=== PATIENT | male | born 1935 | race Caucasian/White ===

== ENCOUNTER → 2019-02-04 | Outpatient (CLI) | payer OTHER ==
[~2019-02-04] MED LIST: ATENOLOL25 MG PO; COUMADIN3 M1 PO; Coumadin10 MG PO; Lovenox80 MG/0.8 SC; PROZAC20 MG PO; VENTOLIN 02.5 MG/3 M INH; WARFARIN SOD5 MG PO
[2019-02-04 08:58] LABS: BASO # 0.1 10*3/uL (0.0-0.1); BASO % 1.3 % (0.0-1.0); EOS # 0.4 10*3/uL (0.0-0.4); EOS % 6.3 % (1.0-4.0); HEMOGLOBIN 13.1 g/dl (14.0-18.0); LYMPH # 1.8 10*3/uL (1.3-4.4); LYMPH % 30.2 % (27.0-41.0); MEAN CELL VOLUME 98.6 fl (80.0-94.0); MEAN CORPUSCULAR HGB 31.5 pg (27.0-31.0); MEAN PLATELET VOLUME 10.4 fl (9.6-12.3); MONO # 0.6 10*3/uL (0.1-1.0); MONO % 9.5 % (3.0-9.0); NEUT # 3.2 10*3/uL (2.3-7.9); NEUT % 52.4 % (47.0-73.0); PLATELET COUNT AUTOMATED 265 10*3/uL (130-400); RED BLOOD COUNT 4.16 10*6/uL (4.50-5.90); RED CELL DISTRI WIDTH 15.8 % (0-14.5)
[2019-02-04 09:20] LABS: ALBUMIN 3.1 gm/dl (3.1-4.5); BUN 18 mg/dl (7-24); CHLORIDE 105 mmol/L (98-107); CREATININE 1.02 mg/dL (0.70-1.30); PHOSPHOROUS 2.6 mg/dL (2.5-4.9); SGOT/AST 20 IU/L (3-35); SGPT/ALT 17 U/L (12-78); SODIUM 138 mmol/L (136-145)
[2019-02-04 09:21] LABS: ALKALINE PHOSPHATASE 84 U/L (45-117)
[2019-02-04 09:28] LABS: FREE T4 1.01 ng/dl (0.76-1.46)
[2019-02-04 09:42] LABS: PREALBUMIN 26 mg/dl (20-40)
[2019-02-04 10:58] LABS: VITAMIN D, 25-HYDROXY 42.1 ng/mL (30-100)
== END | disposition home or self-care (01) ==
LOC: RAD 02:34 → LAB 02:34 → RAD 09:00
PROVIDERS: Internal Medicine
DX: I10 Essential (primary) hypertension (principal); R13.10 Dysphagia, unspecified

== ENCOUNTER 2019-02-16 12:08 | Inpatient (IN) | payer OTHER ==
[~2019-02-16] VITALS: Ht 185.4 cm; Wt 77.7 kg
--- NOTE | ~2019-02-16 | PR ---
[place], [place] PROGRESS NOTE NAME: CHASTITY MURCIA UNIT #: [id number] ROOM: 415 DOCTOR: IVA REDDING MD BIRTHDATE: [birth year] DOS: 02/18/2019 HISTORY OF PRESENT ILLNESS: This gentleman is an 83-year-old, who has presented with previous neurogenic dysphagia. Subsequent regain of swallow. No choking, no coughing upon eating. I have been asked for assessment of this patient regarding PEG tube removal. The patient initially has been on anticoagulant. We had to wait until it is safe timing. Eventually, this was organized for today. PAST MEDICAL HISTORY: CVA, depression, hypertension, and rheumatoid arthritis. PAST SURGICAL HISTORY: Feeding tube. ALLERGIES: ASPIRIN. SOCIAL HISTORY: Nonsmoker, nonalcohol consumer. REVIEW OF SYSTEMS: In general, slightly confused and early dementia could be felt. PHYSICAL EXAMINATION: HEENT: Benign. NECK: Supple, no thyromegaly, no cervical lymphadenopathy. CHEST: Symmetric anatomy, equal expansion. No wheeze, no rhonchi. HEART: Normal sinus rhythm, no gallop, no murmur. ABDOMEN: Soft. No hepato-organomegaly. Bowel sounds present. No pulsatile mass. EXTREMITIES: No cyanosis, no pedal edema. NEUROLOGIC: Alert and oriented to time, place, person. At this stage, anterior abdominal wall was approached. PEG tube site was reassessed, aseptically the area was prepped, the PEG tube was removed percutaneously and site was saturated with Neosporin, pressured dressing by physician was undertaken and we have asked the patient to only have ice popsicles tonight and from tomorrow we can start feeding him soft diet. On the other hand, we are going to keep him on D5 normal saline at 100 mL till morning when he gets something to eat and we will discontinue thereafter. As far as the dressing is concerned, we are going to keep the dressing on for 72 hours and at home, he can change it with gauze and Neosporin ointment and dressing. Thank you very much indeed. [place], [place] PROGRESS NOTE NAME: CHASTITY MURCIA UNIT #: [id number] ROOM: 415 DOCTOR: IVA REDDING MD BIRTHDATE: [birth year] IVA REDDING MD CM:RUMA [id number] IVA REDDING MD 02/19/19 0531 interface
--- NOTE | ~2019-02-16 | CON ---
[place], [place] REPORT OF CONSULTATION NAME: CHASTITY MURCIA UNIT #: [id number] ROOM: 415 DOCTOR: IVA REDDING MD BIRTHDATE: [birth year] DOS: 02/16/2019 HISTORY OF PRESENT ILLNESS: This is an 83-year-old patient who presented with chief complaint of a toxic level of Coumadin and INR greater than 8. This has been corrected. The patient has history of nausea, vomiting, prolonged INR, INR has been corrected partially. I have been asked for removal of PEG tube. Patient has Warfarin toxicity. FAMILY HISTORY: Noncontributory. Detailed history cannot be obtained from the patient, he cannot provide meaningful data to me that otherwise available through the Family Medicine records. PAST SURGICAL HISTORY: Feeding tube placement. SOCIAL HISTORY: Nonsmoker, nonalcohol consumer. ALLERGIES: ASPIRIN. REVIEW OF SYSTEMS: HEENT: Denies double vision, blurred vision. RESPIRATORY: Denies shortness of breath. CARDIOVASCULAR: Denies chest pain. DIGESTIVE SYSTEM: Status post previous PEG tube. PHYSICAL EXAMINATION: VITAL SIGNS: Stable. HEENT: Within normal limit. NECK: Supple. No thyromegaly, no cervical lymphadenopathy. CHEST: Symmetric anatomy, equal expansion. No wheeze, no rhonchi. HEART: Normal sinus rhythm. No gallop, murmur. ABDOMEN: PEG tube in place. Bowel sounds present. NEUROLOGIC: Alert and oriented to time, place, and person. EXTREMITIES: Benign. IMPRESSION: Regain of swallowing, presence of PEG tube, constipation, depression, and Coumadin toxicity. We will await Coumadin toxicity to resolve. We will remove PEG tube on Saturday. [place], [place] REPORT OF CONSULTATION NAME: CHASTITY MURCIA UNIT #: [id number] ROOM: 415 DOCTOR: IVA REDDING MD BIRTHDATE: [birth year] IVA REDDING MD CM:CONSTR:REPORT OF CONSULTATION 2248 03/11/19 0729 interface
--- NOTE | ~2019-02-16 | EKG ---
[place], [place] ELECTROCARDIOGRAM REPORT NAME: CHASTITY MURCIA UNIT #: [id number] ROOM: 415 DOCTOR: ALBA DRAFT REPORT BIRTHDATE: [birth year] [facility] Test Date: 2019-02-18 Test Time: 06:59:33 Pat Name: CHASTITY MURCIA Department: Room: 415 1 Gender: M Connie Scratcher: Tamika Lemus : 1935 Requested By: HERNAN HINDS Order Number: [id number] Reading MD: Yo Guan MD Measurements Intervals [place] Rate: 84 P: 57 RI: 171 QRS: 0 QRSD: 94 T: 35 QT: 397 QTc: 470 Interpretive Statements Sinus rhythm Abnormal R-wave progression, early transition Baseline wander in lead(s) V2 Electronically Signed On 02-18-2019 16:07:50 PDT by Yo Guan MD CM:EKGRPT:ELECTROCARDIOGRAM REPORT [id number] HERNAN HINDS EPIPHANY DRAFT REPORT HERNAN HINDS
--- NOTE | ~2019-02-16 | WRIGHTHP ---
[place], [place] PATIENT HISTORY AND PHYSICAL EXAM NAME: CHASTITY MURCIA UNIT #: [id number] ROOM: 415 DOCTOR: BLANQUITA LILLY MD BIRTHDATE: [birth year] DOS: CHIEF COMPLAINT: Coumadin toxicity, INR greater than 8. HISTORY OF PRESENT ILLNESS: The patient was here in the office for PEG tube removal, but INR was done and it was found to be above 8.2. The patient was on tube feedings and he was getting vitamin K through the tube feedings. He has stopped taking tube feeds and is feeding himself orally and that might be the reason his INR is high. The patient is on Coumadin for 20 years for old CVA. He saw a neurologist and neurologist recommended contrast echo and also recommended 30-day event monitor. We will consult Cardiology for 30-day event monitor and also for a 2D echo. We will also consult Dr. Calderón for PEG tube removal. PAST MEDICAL HISTORY: Significant for: 1. 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 He walks on his own. 2. Rheumatic fever at age of 16. 3. Bowel obstruction and was admitted to [place]. There he had seizure from aspiration pneumonia. Subsequently, he was transferred to [facility] and PEG tube was placed at [facility]. He is now able to eat solid food. MEDICATIONS: Atenolol 25 mg daily, fluoxetine 20 mg daily, albuterol 2.5 mg/3 mL, it is 0.083% nebulization solution 3 times a day as needed for shortness of breath, MiraLax 1 packet mixed with 8 ounces of fluid once daily, Coumadin 5 mg on Saturday, Saturday, Saturday and 10 mg on Saturday, Saturday, Saturday and . PAST SURGICAL HISTORY: Feeding tube and flush tube place in November 2018. FAMILY HISTORY: Noncontributory. 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 His one sister is alive, rest all the siblings have . One brother of cancer and another brother also, of cancer, one sister of heart aneurysm and nonsmoker, nonalcoholic, no illicit drug use. ALLERGIES: ASPIRIN causes anaphylaxis. REVIEW OF SYSTEMS: Basically unremarkable. He has no weight change, no weakness, no earache, no hearing loss, no double vision, no blurred vision, no discharge. He has eye discharge. No shortness of breath. No wheezing. No sputum production. No chest pain. No PND, orthopnea. No heartburn. No constipation. No diarrhea No easy bruising. No frequent or painful urination. No muscle weakness. No dry skin. No rash. No difficulty speaking. No memory loss. No numbness. He is not depressed. No suicidal thoughts. PHYSICAL EXAMINATION: VITAL SIGNS: Temperature 98.1, heart rate 80, blood pressure 122/74 and [place], [place] PATIENT HISTORY AND PHYSICAL EXAM NAME: CHASTITY MURCIA UNIT #: [id number] ROOM: [facility] DOCTOR: BLANQUITA LILLY MD BIRTHDATE: [birth year] respiratory rate is 16 and oxygen saturation 97%. HEAD: Normocephalic, atraumatic. EYES: Pupils equal, round, react to light. Extraocular movements intact. EAR, NOSE AND THROAT: No discharge noted. NECK: No JVD. No lymphadenopathy. No thyromegaly. CHEST: Clinically clear to auscultation bilaterally. HEART: S1, S2, regular rate and rhythm. No murmur, gallop or rub. ABDOMEN: Soft, nontender. The is a PEG tube is in place. EXTREMITIES: No edema noted. NEUROLOGIC: Muscle strength is 4/5 in the right upper extremity and 5/5 in all other extremities. ASSESSMENT AND PLAN: At this time is: 1. Coumadin toxicity. We will start the patient on vitamin K. We will give 5 mg today and check PT/INR in the morning. Pharmacist to dose Coumadin. 2. History of stroke in the past. We will get contrast, 2D echo with bubble study. We will consult Cardiology if required. The patient also needs event monitor. 3. Depression. The patient is on fluoxetine. 4. Constipation. The patient is on MiraLax. 5. We will consult Dr. Calderón for PEG 2 removal as the patient is eating orally. We will follow the patient in the morning. BLANQUITA LILLY MD CM:HISPHYS:PATIENT HISTORY AND PHYSICAL EXAMINATION [id number] BLANQUITA LILLY MD 02/16/19 3139 interface
[2019-02-16 12:09] VITALS: BP 114/44
[2019-02-16 13:00] LABS: BASO # 0.1 10*3/uL (0.0-0.1); BASO % 0.9 % (0.0-1.0); EOS # 0.3 10*3/uL (0.0-0.4); EOS % 5.1 % (1.0-4.0); HEMATOCRIT 38.9 % (42.0-52.0); HEMOGLOBIN 12.2 g/dl (14.0-18.0); LYMPH # 1.9 10*3/uL (1.3-4.4); LYMPH % 32.3 % (27.0-41.0); MEAN CELL VOLUME 97.5 fl (80.0-94.0); MEAN CORPUSCULAR HGB 30.6 pg (27.0-31.0); MEAN CORPUSCULAR HGB CONC 31.4 g/dl (33.0-37.0); MEAN PLATELET VOLUME 10.3 fl (9.6-12.3); MONO # 0.6 10*3/uL (0.1-1.0); NEUT # 2.9 10*3/uL (2.3-7.9); NEUT % 50.5 % (47.0-73.0); PLATELET COUNT AUTOMATED 220 10*3/uL (130-400); RED BLOOD COUNT 3.99 10*6/uL (4.50-5.90); RED CELL DISTRI WIDTH 14.8 % (0-14.5); WHITE BLOOD COUNT 5.7 10*3/uL (4.8-10.8)
[2019-02-16 13:15] LABS: ALBUMIN 2.9 gm/dl (3.1-4.5); ALKALINE PHOSPHATASE 81 U/L (45-117); BUN 12 mg/dl (7-24); CHLORIDE 105 mmol/L (98-107); CREATININE 1.04 mg/dL (0.70-1.30); POTASSIUM 4.1 mmol/L (3.5-5.1); SGOT/AST 16 IU/L (3-35); SGPT/ALT 14 U/L (12-78); SODIUM 140 mmol/L (136-145); TOTAL PROTEIN 7.4 gm/dL (6.4-8.2)
[2019-02-16 13:42] LABS: INTERNATIONAL NORM RATIO 8.3 (2.0-3.5)
--- NOTE | 2019-02-16 13:50 | NUR ---
PT/INR @ 8.3 PER LAB JACKLYN UGARTE DNP NOTIFIED.
[2019-02-16] MEDS ORDERED: WARFARIN SOD5 MG PO (14:52)
[2019-02-16 14:53] VITALS: BP 110/54
[2019-02-16 15:45] VITALS: BP 127/55
--- NOTE | 2019-02-16 15:45 | NUR ---
A 83, admitted to 4E, under the services of BLANQUITA Robles MD with a diagnosis of SUPRATHEREPEUTIC INR . Chief complaint is INR 8.3. Patient arrived via wheel chair from ER. Monitor applied. Initial assessment completed. Vital signs taken and recorded. BLANQUITA ROLBES MD notified of admission to the unit. Orders received. See assessment for past medical history, medications and allergies. Patient and/or family oriented to unit. [facility] visitation policy reviewed. Clothing/patient valuable form completed. IZABELA ALCANTAR
[2019-02-16] MEDS ORDERED: Coumadin10 MG PO (16:23)
[2019-02-16] MEDS ORDERED: ATENOLOL25 MG PO (16:24)
[2019-02-16] MEDS ORDERED: PROZAC20 MG PO (16:25)
[2019-02-16] MEDS ORDERED: VENTOLIN 02.5 MG/3 M INH (16:26)
--- NOTE | 2019-02-16 17:08 | NUR ---
MEDS RECONCILED WITH AND LIST AT BEDSIDE. DEE LIST ON FILE IN CHART.
--- NOTE | 2019-02-16 17:24 | NUR ---
NOTIFIIED DR REDDING OF NEW CONSULT FOR PEG REMOVAL.
[2019-02-16 20:00] VITALS: BP 118/47
[2019-02-17] VITALS: BP 114/50
[2019-02-17 06:11] LABS: INTERNATIONAL NORM RATIO 2.2 (2.0-3.5)
[2019-02-17 08:00] VITALS: BP 134/58; BP 140/63
--- NOTE | 2019-02-17 09:00 | NUR ---
Contract Associate Manager in to talk to patient. Patient states lives at home with . There are few steps in the home. Physician: kem Pharmacy: mail Home health services: none Patient's level of ADLs: MINIMAL ASSIST Patient has working utilities: all working DME: cane, peg tube Follow-up physician's appointment after d/c: patient would like to make follow up doctors appointment Does patient want to access PORTAL?: no Discharge plan dicussed with patient, patient lives at home with , he uses a cane for ambulation, no home services, patient states he will be going home when able and denies any home needs. ARTEMIO PARRA
[2019-02-17 12:00] VITALS: BP 116/51
--- NOTE | 2019-02-17 12:04 | NUR ---
NEW CONSULT CALLED TO DR PAUL'S OFFICE.
[2019-02-17 16:00] VITALS: BP 130/55
--- NOTE | 2019-02-17 17:57 | NUR ---
SPOKE WITH DR PAUL. PATIENT TO BE NPO AFTER MIDNIGHT FOR MARK IN AM.
--- NOTE | 2019-02-17 18:25 | NUR ---
SPOKE WITH PATIENT ABOUT MARK, PATIENT STATES THAT HE DOES NOT WANT PROCEDURE DONE. DR PAUL CALLED AND MADE AWARE. WILL COME AND SPEAK TO PATIENT.
[2019-02-17 20:00] VITALS: BP 124/56
[2019-02-18] VITALS (9 sets, daily range): BP systolic 113–141; BP diastolic 57–68
[2019-02-18 06:17] LABS: INTERNATIONAL NORM RATIO 1.3 (2.0-3.5)
--- NOTE | 2019-02-18 08:30 | NUR ---
Patient resting quietly with no c/o discomfort. Respirations easy and regular. Vital signs stable. No overt distress. PRESTON HERNANDEZ R
--- NOTE | 2019-02-18 09:00 | NUR ---
case management attempted to visit with patient, patient out of room for procedure, will see at a later time
--- NOTE | 2019-02-18 09:30 | NUR ---
PT WENT TO HAVE MARK.
--- NOTE | 2019-02-18 14:08 | NUR ---
Dr Cool talked with case management regarding patient needing lovenox injections bid for 5 days at home, case management contacted the hospital pharmacy and hess would be $156, also contacted patient's pharmacy, [facility] in [place], [place], spoke to pharmacist, patient's copay would be $125, discussed this with patient's and also the nurse. was unsure if they would be able to afford this, nurse stated she would contact Dr Cool and see if there was another option for patient
--- NOTE | 2019-02-18 18:38 | NUR ---
PT AWAITING PEG REMOVAL. DR REDDING IN HOUSE. WILL MONITOR
[2019-02-19] VITALS: BP 111/59
[2019-02-19 06:59] LABS: INTERNATIONAL NORM RATIO 1.2 (2.0-3.5)
--- NOTE | 2019-02-19 09:00 | NUR ---
case management visits with patient, patient denies any home needs
[2019-02-19 12:00] VITALS: BP 108/86
--- NOTE | 2019-02-19 12:18 | NUR ---
PATIENT CALLED TO DISCUSS PATIENT GOING HOME WITH LOVOENOX SHOTS AT AN OUT OF POCKET COST OF $125. WILL DISCUSS WITH PATIENT AND LET US KNOW.
[2019-02-19] MEDS ORDERED: Lovenox80 MG/0.8 SC (12:44)
[2019-02-19] MEDS ORDERED: COUMADIN3 M1 PO (12:44)
--- NOTE | 2019-02-19 13:31 | NUR ---
case management received a message that patient is going home with Lovenox injections, will have [facility] see patient at home
--- NOTE | 2019-02-19 13:57 | NUR ---
case management attempted to speak with Rosy from [facility], left voicemail that patient is being discharged today and his information was faxed
--- NOTE | 2019-02-19 15:58 | NUR ---
ONE TIME DOSE OF COUMADIN AND LOVENOX ADMINISTERED AT THIS TIME. AND SON TAUGHT HOW TO ADMINISTER LOVENOX INJECTION. QUESTIONS ANSWERED. PATIENT WILL FOLLOW UP AT DR LILLY'S OFFICE TOMORROW.
[2019-02-19 16:00] VITALS: BP 121/59
--- NOTE | 2019-02-19 16:15 | NUR ---
Discharge instructions reviewed with patient/family. Patient receptive and verbalizes understanding. Follow-up care arranged. Written instructions given to patient/family. PATIENT DISCHARGED HOME WITH HOME HEALTH VIA WHEELCHAIR WITH SON AND . MANNIE RIGGS
== END 2019-02-19 16:15 | disposition home health service (06) | DRG 948 ==
LOC: ED 12:08 → EDHOLD 14:34 → 4E 14:34
PROVIDERS: Nurse Practitioner Family; ADMIT Internal Medicine
PROC: 0DP6XUZ Removal of Feeding Device from Stomach, External Approach (ICD-10-PCS; principal; 2019-02-18)
DX: R79.1 Abnormal coagulation profile (principal); Q21.1 Atrial septal defect; I69.351 Hemiplegia and hemiparesis following cerebral infarction affecting right dominant side; T45.515A Adverse effect of anticoagulants, initial encounter; F32.9 Major depressive disorder, single episode, unspecified; I10 Essential (primary) hypertension; D64.9 Anemia, unspecified; Z66 Do not resuscitate; Z51.5 Encounter for palliative care; K59.00 Constipation, unspecified; I48.91 Unspecified atrial fibrillation; Z93.1 Gastrostomy status; Y92.89 Other specified places as the place of occurrence of the external cause; Z88.6 Allergy status to analgesic agent; Z91.018 Allergy to other foods; Z87.01 Personal history of pneumonia (recurrent); Z80.0 Family history of malignant neoplasm of digestive organs; Z82.49 Family history of ischemic heart disease and other diseases of the circulatory system; Z79.899 Other long term (current) drug therapy; I69.322 Dysarthria following cerebral infarction

== ENCOUNTER → 2019-07-02 | Outpatient (CLI) | payer OTHER ==
[2019-07-02 12:33] LABS: BASO # 0.1 10*3/uL (0.0-0.1); BASO % 0.6 % (0.0-1.0); EOS # 0.1 10*3/uL (0.0-0.4); EOS % 0.5 % (1.0-4.0); HEMATOCRIT 40.2 % (42.0-52.0); HEMOGLOBIN 12.9 g/dl (14.0-18.0); LYMPH # 1.2 10*3/uL (1.3-4.4); LYMPH % 12.2 % (27.0-41.0); MEAN CORPUSCULAR HGB 31.5 pg (27.0-31.0); MEAN CORPUSCULAR HGB CONC 32.1 g/dl (33.0-37.0); MEAN PLATELET VOLUME 10.7 fl (9.6-12.3); MONO # 0.8 10*3/uL (0.1-1.0); MONO % 7.6 % (3.0-9.0); NEUT # 7.8 10*3/uL (2.3-7.9); NEUT % 78.8 % (47.0-73.0); PLATELET COUNT AUTOMATED 256 10*3/uL (130-400); RED CELL DISTRI WIDTH 12.6 % (0-14.5); WHITE BLOOD COUNT 9.8 10*3/uL (4.8-10.8)
[2019-07-02 13:03] LABS: ALBUMIN 3.5 gm/dl (3.1-4.5); BUN 19 mg/dl (7-24); CHLORIDE 103 mmol/L (98-107); CREATININE 1.26 mg/dL (0.70-1.30); POTASSIUM 4.1 mmol/L (3.5-5.1); SGOT/AST 13 IU/L (3-35); SGPT/ALT 10 U/L (12-78); SODIUM 138 mmol/L (136-145); TOTAL PROTEIN 8.1 gm/dL (6.4-8.2)
[2019-07-02 13:10] LABS: ALKALINE PHOSPHATASE 80 U/L (45-117); FREE T4 0.94 ng/dl (0.76-1.46)
== END | disposition home or self-care (01) ==
LOC: LAB 11:43
PROVIDERS: Internal Medicine
DX: J02.9 Acute pharyngitis, unspecified (principal); R25.1 Tremor, unspecified; R13.10 Dysphagia, unspecified; J44.9 Chronic obstructive pulmonary disease, unspecified

== ENCOUNTER → 2019-07-08 | Outpatient (CLI) | payer OTHER | END | disposition home or self-care (01) | LOC: RAD/SH 03:31 → RAD 08:00 | DX: J02.9 Acute pharyngitis, unspecified (principal); R13.10 Dysphagia, unspecified; R63.4 Abnormal weight loss; C12 Malignant neoplasm of pyriform sinus; R25.1 Tremor, unspecified ==

== ENCOUNTER 2019-08-27 14:29 | Inpatient (IN) | payer OTHER ==
[~2019-08-27] VITALS: Ht 185.4 cm; Wt 69.6 kg
--- NOTE | ~2019-08-27 | CON ---
[place], [place] REPORT OF CONSULTATION NAME: CHASTITY MURCIA UNIT #: [id number] ROOM: 404 DOCTOR: MILADIS ELDRIDGEIVA BIRTHDATE: [birth year] DOS: 08/28/2019 GASTROENDOSCOPIC CONSULTATION REPORT HISTORY OF PRESENT ILLNESS: This gentleman is an 84-year-old who has presented with chief complaint of dysphagia, protein-calorie malnutrition. I have been asked for placement of PEG tube. The patient's CBC differential has been within normal limit, borderline anemia with platelets of 357, H and H of 11 and 36, white blood cell has been normal. The patient's comprehensive metabolic panel and electrolyte panel. GFR greater than 60. Labs on records done and LFTs within normal limits. Prealbumin is 12. Chest x-ray, no acute process. CBC differential was reassessed. Hemoglobin A1c 6.1. Comprehensive metabolic reassessed, re-corrected and TSH normal. INR 1.2. Vitamin B12, folate within normal limit. PAST MEDICAL HISTORY: Associated with CVA, atrial fibrillation, hypertension, rheumatic fever, systemic hypertension, failure to thrive. PAST SURGICAL HISTORY: PEG tube in the past. SOCIAL HISTORY: Nonsmoker, nonalcohol consumer. FAMILY HISTORY: Noncontributory. ALLERGIES: ASPIRIN. MEDICATIONS: At home including Eliquis that has been placed on hold. The last dose was yesterday in the morning. REVIEW OF SYSTEMS: HEENT: Denies double vision, blurred vision. RESPIRATORY: Admits some shortness of breath, cough. CARDIOVASCULAR: Denies chest pain. DIGESTIVE SYSTEM: Failure to thrive, compromising adequate caloric intake, cough. PHYSICAL EXAMINATION: GENERAL: Frail patient. HEENT: Head: Normocephalic, nontraumatic. Mouth and buccal mucosa benign, dry. NECK: Supple, no thyromegaly, no cervical lymphadenopathy. CHEST: Decreased air entry bilaterally. No wheezes. Scattered rales, rhonchi. HEART: Atrial fibrillation, moderate ventricular response. ABDOMEN: Soft. No hepato-organomegaly. Bowel sounds present. EXTREMITIES: Dry. No cyanosis, no pedal edema. NEUROLOGIC: Alert, slow. Labs reviewed. Records reviewed. IMPRESSION AND PLAN: Failure to thrive, atrial fibrillation, depression, [place], [place] REPORT OF CONSULTATION NAME: CHASTITY MURCIA UNIT #: [id number] ROOM: 404 DOCTOR: MILADIS ELDRIDGE,IVA BIRTHDATE: [birth year] systemic hypertension, protein-calorie malnutrition. This patient had a PEG tube in past. He was able to eat, again this capability has been compromised in 01/2019. His PEG was removed and they wanted to be removed at that stage; however, a replacement of the PEG tube becomes of an essence to keep his albumin at the appropriate level. Labs reviewed, records reviewed. Work in progress for PEG tube replacement. IVA REDDING MD CM:CONSTR:REPORT OF CONSULTATION 1759 08/29/19 0500 interface
--- NOTE | ~2019-08-27 | PROC NOTE ---
[place], [place] PROCEDURE NOTE NAME: CHASTITY MURCIA UNIT #: [id number] ROOM: 404 DOCTOR: ROLAND AQUINO BIRTHDATE: [birth year] DOS: 08/31/2019 MODIFIED BARIUM SWALLOW LOCATION: [facility], room 404, bed 1. ORDERING PHYSICIAN: Tony Gamez DO RADIOLOGIST: Dr. Chin. BACKGROUND INFORMATION: The patient is an 84-year-old male who was seen for modified barium swallow. This test was ordered to determine candidacy for p.o. intake. The patient was admitted from home with failure to thrive, possible aspiration pneumonia and dysphagia. Further medical history includes CVA, AFib, HTN. The patient was eating orally at home, following removal of prior PEG tube in January 2019. The patient was becoming progressively weaker at home, losing weight and having difficulty performing ADLs. He reported that he has been having difficulty swallowing and feeling as if food is sticking in his throat. He reported undergoing a prior modified barium swallow in the past. When asked about these results, he stated that he could not remember the details, but stated "it did not go so well." The patient underwent a recent EGD, revealing gastritis. The PEG tube was placed 08/28/2019 and the patient is therefore n.p.o. For the assessment, he was alert, cooperative and able to follow commands. Oral peripheral examination revealed presence of natural teeth in fair to good condition. Lingual, labial and buccal skills were within functional limits in terms of strength, range of motion and coordination. Volitional cough was weak and congested. Volitional swallow was delayed. METHODS AND MATERIALS USED FOR THE EXAMINATION: The patient was positioned in the lateral plane and the exam was viewed under fluoroscopy. The patient was presented with a variety of consistencies to assess swallowing skills including applesauce mixed with barium presented in half teaspoon amount and nectar thick barium taken by spoon. ORAL PHASE: The patient achieved adequate labial seal around spoon with no anterior loss. Bolus formation and transit were adequate. Tongue to palate contact was adequate. Velar functioning was adequate. Tongue to posterior pharyngeal wall contact was moderately impaired with all consistencies. PHARYNGEAL PHASE: With all consistencies given when the pharyngeal swallow triggered, he was noted to display impaired hyolaryngeal elevation. The entire bolus remained in his vallecula. The patient had difficulty clearing this. Strategies were attempted such as hard swallow, secondary swallow and liquid wash. These strategies were not effective in clearing his airway and due to the buildup of residue in the vallecula some of the material spilled into his airway, resulting in aspiration. Coughing was elicited. This was not effective in clearing his airway. Expectoration maneuvers were also attempted and were not successful with nectar thick liquid. The same results were displayed. Testing was terminated at this point as he was unable to safely swallow consistencies given. [place], [place] PROCEDURE NOTE NAME: CHASTITY MURCIA UNIT #: [id number] ROOM: [facility] DOCTOR: ROLAND AQUINO BIRTHDATE: [birth year] ESOPHAGEAL PHASE: This phase of the swallow was not formally assessed during this exam. IMPRESSIONS AND RECOMMENDATIONS: Based upon assessment results, this 84-year-old patient presents with a [id number] oropharyngeal dysphagia, characterized by impairments in tongue to posterior pharyngeal wall contact, laryngeal elevation, pooling in the vallecula and aspiration after the swallow due to spill over of residue. Strategies were ineffective. Recommend continued n.p.o. status as the patient cannot safely tolerate oral intake. Recommend he remain on tube feeding. Results and recommendations were shared with the patient and his nurse and they verbalized understanding. Thank you very much for this referral. Should you have any questions regarding this patient, please contact the speech pathologist at [phone]. ROLAND AQUINO CM:PROCNOTE:PROCEDURE NOTE 1346 [id number] ROLAND AQUINO
--- NOTE | ~2019-08-27 | O ---
[place], [place] OPERATIVE NOTE NAME: CHASTITY MURCIA UNIT #: [id number] ROOM: 404 DOCTOR: MILADIS ELDRIDGE,IVA BIRTHDATE: [birth year] DOS: 08/28/2019 INDICATIONS: An 84-year-old patient who has presented with chief complaint of dysphagia, unable to consume adequate calorie, coughs when eating, failure to thrive, emaciation, protein-calorie malnutrition. PROCEDURE: Today's procedure part EGD, PEG tube placement. PREMEDICATION: Propofol. SCOPE: Olympus forward-viewing gastroscope Q10 video. REPORT: After putting the patient in left lateral position and application of lubricant to the scope, the scope was introduced. Thereafter, under direct visualization, advanced through the length of esophagus without difficulty. The esophagus, cervical, thoracic distally carefully examined. Gastric pouch was entered. Upon entry of the stomach. Duodenal bulb, second and third part within normal limit. Best transillumination line esophagus, so it is best transillumination sign on the subxiphoid anatomy identified. Injected with 2 mL Xylocaine. Trocar was introduced in the same spot. Guidewire was advanced, grasped with forceps orally extracted. Ponsky-Gauderer gastrostomy feeding device size 20 was anchored to the wire orally pulled recovered from the surface of the abdomen. Anchors placed, patency checked, tolerated the procedure well. IMPRESSION: Gastritis, status post PEG tube. PLAN AND DISCUSSION: TwoCal HN half a can q.i.d., flush of water 100 mL q.6 hours. Full liquid as tolerated and clinical reassessment, adjustment of feeding as we go along. IVA REDDING MD CM:OPRECORD:OPERATIVE NOTE [id number] IVA REDDING MD 08/28/19 2001 interface
--- NOTE | ~2019-08-27 | EKG ---
[place], [place] ELECTROCARDIOGRAM REPORT NAME: CHASTITY MURCIA UNIT #: [id number] ROOM: 404 DOCTOR: ALBA DRAFT REPORT BIRTHDATE: [birth year] [facility] Test Date: 2019-08-29 Test Time: 12:45:05 Pat Name: CHASTITY MURCIA Department: Room: [facility] 1 Gender: M Composite Worker: : 1935 Requested By: BRANDY EMERY Order Number: [id number] Reading MD: Yo Guan MD Measurements Intervals [place] Rate: 106 P: 68 CT: 179 QRS: 12 QRSD: 92 T: 49 QT: 362 QTc: 481 Interpretive Statements Sinus tachycardia Abnormal R-wave progression, early transition Borderline prolonged QT interval Baseline wander in lead(s) V4,V5 Compared to ECG 02/18/2019 06:59:33 Sinus rhythm no longer present Electronically Signed On 08-29-2019 11:50:31 PDT by Yo Guan MD CM:EKGRPT:ELECTROCARDIOGRAM REPORT [id number] BRANDY EMERY MD EPIPHANY DRAFT REPORT BRANDY EMERY MD
[2019-08-27 14:20] VITALS: BP 129/66
--- NOTE | 2019-08-27 14:20 | NUR ---
A 84, admitted to , under the services of BLANQUITA Robles MD with a diagnosis of POSSIBLE ASP PNA, AF TO THRIVED. Chief complaint is DYSPAGIA. Patient arrived via wheel chair from [place]. Monitor applied. Initial assessment completed. Vital signs taken and recorded. BLANQUITA ROBLES MD notified of admission to the unit. Orders received. See assessment for past medical history, medications and allergies. Patient and/or family oriented to unit. Clothing/patient valuable form completed. VIANNEY DYER
[2019-08-27 14:26] VITALS: BP 129/66
[2019-08-27] MEDS ORDERED: ELIQUIS5 M1 PO (14:51)
--- NOTE | 2019-08-27 14:55 | NUR ---
PRESENT AND NOTIFIED THAT HOME MEDS ARE VERIFIED. INFORMED THAT PATIENT ID DNR-CC FAMILY TO BRING IN COPIES, PATIENT CURRENTLY ON MONITOR, ASKED IF HE WANTS TO KEEP MONITOR. STATED HE WILL DISCUSS PLAN WITH PATIENT
--- NOTE | 2019-08-27 15:51 | NUR ---
CHEMICAL RADIATION TECHNICIAN ACCOUNTED FOR AND PLACED IN BIN.
[2019-08-27 15:56] LABS: BASO # 0.1 10*3/uL (0.0-0.1); EOS # 0.2 10*3/uL (0.0-0.4); EOS % 3.1 % (1.0-4.0); HEMATOCRIT 36.9 % (42.0-52.0); HEMOGLOBIN 11.4 g/dl (14.0-18.0); LYMPH # 1.8 10*3/uL (1.3-4.4); LYMPH % 24.5 % (27.0-41.0); MEAN CELL VOLUME 96.3 fl (80.0-94.0); MEAN CORPUSCULAR HGB 29.8 pg (27.0-31.0); MEAN CORPUSCULAR HGB CONC 30.9 g/dl (33.0-37.0); MEAN PLATELET VOLUME 9.9 fl (9.6-12.3); MONO # 0.7 10*3/uL (0.1-1.0); NEUT # 4.4 10*3/uL (2.3-7.9); NEUT % 61.1 % (47.0-73.0); PLATELET COUNT AUTOMATED 357 10*3/uL (130-400); RED BLOOD COUNT 3.83 10*6/uL (4.50-5.90); RED CELL DISTRI WIDTH 12.2 % (0-14.5); WHITE BLOOD COUNT 7.2 10*3/uL (4.8-10.8)
[2019-08-27 16:00] VITALS: BP 126/76
[2019-08-27 16:23] LABS: ALBUMIN 2.5 gm/dl (3.1-4.5); ALKALINE PHOSPHATASE 73 U/L (45-117); BUN 16 mg/dl (7-24); CHLORIDE 103 mmol/L (98-107); CREATININE 1.08 mg/dL (0.70-1.30); PHOSPHOROUS 2.9 mg/dL (2.5-4.9); POTASSIUM 4.2 mmol/L (3.5-5.1); SGOT/AST 17 IU/L (3-35); SGPT/ALT 13 U/L (12-78); SODIUM 137 mmol/L (136-145)
--- NOTE | 2019-08-27 16:42 | NUR ---
CALLED AND MADE AWARE OF CONSULT. STATED TO PLACE FOR EGD 08/28 WITH POSSIBLE PEG TUBE PLACEMENT. ORDERS IN PLACE PER WISHES. MADE AWARE BARIUM SWALLOW HELD DO TO EGD, STATED OK.
--- NOTE | 2019-08-27 16:49 | NUR ---
ATTEMPT TO CALL [facility] PER ORDERS TO SEE ABOUT POSSIBLE PEG-TUBE PLACEMENT FOR TOMORROW IF FAMILY IS ACCEPTING OF SO. TRIED X2 NUMBERS FOR LEILA (), IMMEDIATELY WENT TO [employer]
[2019-08-27 20:00] VITALS: BP 123/62
--- NOTE | 2019-08-27 20:00 | NUR ---
TUNDE DEE CALLED BACK AND INFORMED THAT REQUESTING TO PLACE PEGTUBE ALONG WITH EGD. TUNDE STATED THAT WAS OK. VERIFIED BY TWO NURSES.
[2019-08-28] VITALS (8 sets, daily range): BP systolic 120–153; BP diastolic 62–76
[2019-08-28 07:05] LABS: BASO # 0.1 10*3/uL (0.0-0.1); BASO % 0.7 % (0.0-1.0); EOS # 0.2 10*3/uL (0.0-0.4); EOS % 1.8 % (1.0-4.0); HEMATOCRIT 36.1 % (42.0-52.0); HEMOGLOBIN 11.4 g/dl (14.0-18.0); LYMPH # 1.4 10*3/uL (1.3-4.4); LYMPH % 16.6 % (27.0-41.0); MEAN CELL VOLUME 93.8 fl (80.0-94.0); MEAN CORPUSCULAR HGB 29.6 pg (27.0-31.0); MEAN CORPUSCULAR HGB CONC 31.6 g/dl (33.0-37.0); MEAN PLATELET VOLUME 10.5 fl (9.6-12.3); MONO # 0.6 10*3/uL (0.1-1.0); MONO % 7.3 % (3.0-9.0); NEUT # 6.2 10*3/uL (2.3-7.9); NEUT % 73.4 % (47.0-73.0); PLATELET COUNT AUTOMATED 365 10*3/uL (130-400); RED BLOOD COUNT 3.85 10*6/uL (4.50-5.90); RED CELL DISTRI WIDTH 12.3 % (0-14.5); WHITE BLOOD COUNT 8.4 10*3/uL (4.8-10.8)
[2019-08-28 07:33] LABS: ALBUMIN 2.5 gm/dl (3.1-4.5); ALKALINE PHOSPHATASE 70 U/L (45-117); BUN 17 mg/dl (7-24); CHLORIDE 104 mmol/L (98-107); CHOLESTEROL 123 mg/dL (<200); CREATININE 0.92 mg/dL (0.70-1.30); HDL CHOLESTEROL 33 mg/dl (40-60); LDL CHOLESTEROL 80 mg/dL (9-159); PHOSPHOROUS 2.7 mg/dL (2.5-4.9); SGOT/AST 14 IU/L (3-35); SGPT/ALT 14 U/L (12-78); SODIUM 138 mmol/L (136-145); TOTAL PROTEIN 7.5 gm/dL (6.4-8.2); TRIGLYCERIDES 52 mg/dl (<150); VLDL CHOLESTEROL 10 mg/dL (6-40)
[2019-08-28 07:35] LABS: INTERNATIONAL NORM RATIO 1.2 (2.0-3.5)
--- NOTE | 2019-08-28 08:00 | NUR ---
PT RESTING IN BED, NO DISTRESS NOTED. DENIES ANY COMPLAINTS. CALL LIGHT WITHIN REACH.
--- NOTE | 2019-08-28 08:37 | NUR ---
SPEECH THERAPY Orders received for Modificed Barium Swallow Study. Chart review complete. Patient with primary diagnosis of failure to thrive with hx of dysphagia, CVA (1999), afib, PFO, depression, and HTN. Patient is currently NPO for procedures this afternoon. Plan fo EGD with Dr. Calderón, with possible PEG tube placement. MBS on hold until patient appropriate for oral consumption following procedures. MBS to be performed at a later time/date when appropriate. Thank you for your consult. Nicole Woods MA CCC-ELECTRIC MOTORMAN
--- NOTE | 2019-08-28 09:00 | NUR ---
Wooden Tank Erector in to talk to patient. Patient states lives at home with his . There are 0 steps in the home. Physician: Dr. Herberth Noe [facility] Home health services: none Patient's level of ADLs: MINIMAL ASSIST Patient has working utilities: yes DME: walker, cane Follow-up physician's appointment after d/c: he prefers to make his own follow up appt after discharge Does patient want to access PORTAL?: no Discharge plan discussed with patient. He lives at home with his . He is independent in his ADLs and ambulates with a cane or a walker. Discussed short term SNF and he refuses. Discussed home health care services and she refuses. When medically stable he will be discharged to home. His or son will provide transportation on discharge. KATHY TINAJERO
--- NOTE | 2019-08-28 11:22 | NUR ---
PHYSICAL THERAPY Physical therapy evaluation completed, 4E. Full details to follow. Low complexity determined after evaluation/chart review, [address]. Pt demonstrates good functional mobility using his personal std cane. no Therapy needs at this time. May consider Home health or no needs upon discharge. Thank you Suzy Cullen, PT, DPT
--- NOTE | 2019-08-28 13:15 | NUR ---
Nursing screen and Occupational Therapy referral received. Thank you. Misty Power OTR/L
--- NOTE | 2019-08-28 15:24 | NUR ---
Occupational Therapy evaluation completed on 4 with full eval to follow. Precautions include NPO, dysphagia with possible aspiration, supervision in mobility d/t unfamiliar environment and generalized weakness d/t poor nutrition, low complexity level 64415. Recommend no further OT at this time. Patient is independent in transfers and has LB adaptive equipment for dressing but prefers assist at home. Recommend return home with family assist. Misty Power OTR/L
--- NOTE | 2019-08-28 16:42 | NUR ---
PT OFF FLOOR FOR EGD/POSSIBLE PEG PLACEMENT.
--- NOTE | 2019-08-28 16:57 | NUR ---
PT AND SON AWARE THAT PT HAS LEFT FOR SURGERY AT THIS TIME.
--- NOTE | 2019-08-28 18:37 | NUR ---
RECEIVED CALL FROM DR REDDING. ORDERS RECEIVED. STATES PT MAY HAVE MODIFIED BARIUM SWALLOW ON SATURDAY.
[2019-08-29] VITALS: BP 140/58
[2019-08-29 05:39] LABS: BILIRUBIN NEGATIVE (NEGATIVE); BLOOD TRACE-INTACT (NEGATIVE); CLARITY CLEAR (CLEAR); COLOR YELLOW (YELLOW); GLUCOSE NEGATIVE (NEGATIVE); KETONE 1+ (NEGATIVE); LEUKO ESTERASE TRACE (NEGATIVE); NITRITE NEGATIVE (NEGATIVE); PH 6.5 (5.0-9.0); UROBILINOGEN 0.2 E.U./dl (0.2-1.0)
[2019-08-29 05:47] LABS: EPITHELIAL CELLS 15-20
[2019-08-29 08:00] VITALS: BP 141/65
[2019-08-29 08:16] LABS: BASO # 0.1 10*3/uL (0.0-0.1); BASO % 0.5 % (0.0-1.0); EOS % 0.1 % (1.0-4.0); HEMATOCRIT 35.4 % (42.0-52.0); HEMOGLOBIN 11.2 g/dl (14.0-18.0); LYMPH # 1.2 10*3/uL (1.3-4.4); LYMPH % 8.4 % (27.0-41.0); MEAN CELL VOLUME 95.9 fl (80.0-94.0); MEAN CORPUSCULAR HGB 30.4 pg (27.0-31.0); MEAN CORPUSCULAR HGB CONC 31.6 g/dl (33.0-37.0); MEAN PLATELET VOLUME 10.6 fl (9.6-12.3); MONO # 0.8 10*3/uL (0.1-1.0); MONO % 5.6 % (3.0-9.0); NEUT # 11.9 10*3/uL (2.3-7.9); NEUT % 84.9 % (47.0-73.0); PLATELET COUNT AUTOMATED 356 10*3/uL (130-400); RED BLOOD COUNT 3.69 10*6/uL (4.50-5.90); RED CELL DISTRI WIDTH 12.3 % (0-14.5)
[2019-08-29 08:35] LABS: CHLORIDE 104 mmol/L (98-107); POTASSIUM 3.9 mmol/L (3.5-5.1); SODIUM 139 mmol/L (136-145)
[2019-08-29 08:39] LABS: BUN 16 mg/dl (7-24); CREATININE 1.04 mg/dL (0.70-1.30)
--- NOTE | 2019-08-29 11:42 | NUR ---
PT'S HR HAS BEEN RUNNING CONSISTENTLY LOW 100'S, HR SOUNDS IRREGULAR. IN HISTORY NOTED AFIB. REVIEWED HOME MEDS, PT HAD PREVIOUSLY BEEN ON ATENOLOL, BUT HAS BEEN D/C. CALL PLACED TO PT'S WHO STATES HE DOES NOT TAKE THE ATENOLOL ANYMORE. CALL PLACED TO DR EMERY REGARDING PT, STATES TO OBTAIN EKG.
[2019-08-29 12:00] VITALS: BP 147/70
--- NOTE | 2019-08-29 12:15 | NUR ---
BOLUS FEEDING GIVEN AT THIS TIME. PT TOLERATED WELL.
[2019-08-29 16:00] VITALS: BP 143/66
[2019-08-29 20:00] VITALS: BP 148/62
[2019-08-30] VITALS: BP 131/62
[2019-08-30 06:42] LABS: BASO % 0.3 % (0.0-1.0); EOS # 0.1 10*3/uL (0.0-0.4); EOS % 0.7 % (1.0-4.0); HEMOGLOBIN 10.6 g/dl (14.0-18.0); LYMPH # 1.4 10*3/uL (1.3-4.4); LYMPH % 10.2 % (27.0-41.0); MEAN CORPUSCULAR HGB 29.6 pg (27.0-31.0); MEAN CORPUSCULAR HGB CONC 31.2 g/dl (33.0-37.0); MEAN PLATELET VOLUME 10.2 fl (9.6-12.3); MONO % 7.1 % (3.0-9.0); NEUT # 11.1 10*3/uL (2.3-7.9); NEUT % 81.2 % (47.0-73.0); PLATELET COUNT AUTOMATED 308 10*3/uL (130-400); RED BLOOD COUNT 3.58 10*6/uL (4.50-5.90); RED CELL DISTRI WIDTH 12.5 % (0-14.5); WHITE BLOOD COUNT 13.7 10*3/uL (4.8-10.8)
[2019-08-30 07:22] LABS: BUN 13 mg/dl (7-24); CHLORIDE 103 mmol/L (98-107); POTASSIUM 3.8 mmol/L (3.5-5.1); SODIUM 137 mmol/L (136-145)
[2019-08-30 07:23] LABS: CREATININE 0.89 mg/dL (0.70-1.30)
[2019-08-30 08:00] VITALS: BP 137/68
--- NOTE | 2019-08-30 10:00 | NUR ---
PEG FEEDING GIVEN AT THIS TIME, PT HOB REMAINS ELEVATED 30 DEGREES. PT TOLERATED WELL.
[2019-08-30 12:00] VITALS: BP 136/73
--- NOTE | 2019-08-30 14:00 | NUR ---
PEG FEEDING GIVEN AT THIS TIME. PT TOLERATED WELL.
[2019-08-30 16:00] VITALS: BP 118/49
[2019-08-30 20:00] VITALS: BP 125/55
[2019-08-31] VITALS: BP 125/59
--- NOTE | 2019-08-31 04:00 | NUR ---
SLEEPING, NO DISTRESS NOTED, CALL LIGHT WITHIN REACH
--- NOTE | 2019-08-31 04:04 | NUR ---
24 HR chart check completed.
[2019-08-31 06:10] LABS: BASO % 0.4 % (0.0-1.0); EOS # 0.1 10*3/uL (0.0-0.4); EOS % 1.4 % (1.0-4.0); HEMATOCRIT 34.7 % (42.0-52.0); HEMOGLOBIN 10.7 g/dl (14.0-18.0); LYMPH # 1.1 10*3/uL (1.3-4.4); LYMPH % 11.4 % (27.0-41.0); MEAN CELL VOLUME 94.6 fl (80.0-94.0); MEAN CORPUSCULAR HGB 29.2 pg (27.0-31.0); MEAN CORPUSCULAR HGB CONC 30.8 g/dl (33.0-37.0); MEAN PLATELET VOLUME 10.1 fl (9.6-12.3); MONO # 0.7 10*3/uL (0.1-1.0); MONO % 7.2 % (3.0-9.0); NEUT # 7.8 10*3/uL (2.3-7.9); NEUT % 79.3 % (47.0-73.0); PLATELET COUNT AUTOMATED 302 10*3/uL (130-400); RED BLOOD COUNT 3.67 10*6/uL (4.50-5.90); RED CELL DISTRI WIDTH 12.3 % (0-14.5); WHITE BLOOD COUNT 9.9 10*3/uL (4.8-10.8)
[2019-08-31 06:48] LABS: BUN 12 mg/dl (7-24); CHLORIDE 100 mmol/L (98-107); CREATININE 0.76 mg/dL (0.70-1.30); POTASSIUM 3.9 mmol/L (3.5-5.1); SODIUM 134 mmol/L (136-145)
--- NOTE | 2019-08-31 07:38 | NUR ---
TAE received call from patients . She verified patient password. She stated that her is going to need a SNF with having a PEG tube placed. She stated she would like [facility] to be [facility] to [facility] or [facility] in [place]. She stated she would be in around 9:15-9:30a this morning to discuss this with the rn field case manager. TAE notified Boxing Inspector Jayne who stated she would tell rn field case manager Charla. -TAE Britt
[2019-08-31 08:00] VITALS: BP 133/53
--- NOTE | 2019-08-31 09:30 | NUR ---
Discussed with and sons short term SNF and they are agreeable. 1st choice [facility] in [place] and 2nd choice [place]. urban and regional planner notified.
--- NOTE | 2019-08-31 10:30 | NUR ---
Occupational Therapy evaluation completed on 4 with full eval to follow. Patient was seen for OT eval 08/28/19 and at that time did not qualify for further OT. Since then, patient has had a new PEG tube placed and has been NPO and has not been out of bed. Family felt he was not able to return home and requested another evaluation. Precautions include fall risk,bed alarm,slow rate of performance,unsteady in standing and with wh walker, moderate complexity level 54667 via chart review, testing and evaluation. Recommend OT per POC and SNf to enable return home w/ and son at independent level. Thank you. Misty Power OTR/l
--- NOTE | 2019-08-31 10:37 | NUR ---
PHYSICAL THERAPY Physical therapy evaluation completed, 4E. Full details to follow. Moderate complexity determined after evaluation/chart review, 169[address]. PT to work on strength, endurance, gait, transfers, safety and balance. Recommending SNF at discharge. Thank you Suzy Cullen, PT, DPT
--- NOTE | 2019-08-31 10:45 | NUR ---
PEG TUBE PLACEMENT VERIFIED VIA AIR BOLUS. PT BOLUS FEED GIVEN AT THIS TIME. PT TOLERATED WELL. HOB ELEVATED. CALL LIGHT IN REACH. WILL MONITOR
[2019-08-31 11:53] VITALS: BP 122/54
--- NOTE | 2019-08-31 12:51 | NUR ---
patient/family requesting a referral to [facility] in [facility]. Contacted [facility] to verify they [facility] and they do have a male bed available. Faxed referral to [facility] @ [phone]. Requires precert.
--- NOTE | 2019-08-31 12:54 | NUR ---
OT NOTE Pt was seen this P.M. 1:1 for 13 minute OT session. Upon arrival pt was sitting upright on the EOB. Pt identified by name and and had no complaints at this time. Pt completed sit to stand transfer from bed level with CGA and use of w/w for UE support. Functional mobility was then completed into the bathroom with CGA and use of w/w. There he transferred on/off standard commode with SBA and use of grab bar for UE support. Clothing management completed with CGA for safety. Pt then stood sink side while washing his hands with CGA. Functional mobility then completed back to the EOB for a seated rest break. Transport then arrived to take pt for a medical test. Functional mobility then completed to the w/c with CGA and use of w/w with one verbal prompt provided throughout for safe turning technique. Pt was left sitting upright in the w/c under transport supervision. Continue with rec D/C plan to SNF. JUSTUS Portillo
--- NOTE | 2019-08-31 13:26 | NUR ---
SPEECH PATHOLOGY MBS completed as per orders. This test was ordered to determine candidacy for po intake. Patient was admitted from home with failure to thrive, possible aspiration pneumonia and dysphagia. he was eating orally at home following removal of PEG tube in January,. He was becoming progressively weaker at home, losing weight and having difficulty performing ADLs. Patient reported that he has been having difficulty swallowing and feeling as if food is sticking in his throat. He underwent recent EGD revealing gastritis. PEG tube was placed 08/28/19 and patient is therefore NPO. For assessment he was alert, cooperative and able to follow commands. Oral peripheral exam revealed presence of natural teeth. Lingual/labial and buccal skills were WFL in terms of strength, ROM and coordination. Volitional cough was weak and congested. Volitional swallow was delayed. He was presented with puree and nectar thick liquids. Results revealed a moderate-severe oropharyngeal dysphagia. Tongue to post. pharyngeal wall contact was reduced resulting in pooling of entire bolus in valleculae, some of which spilled into airway following the swallow, resulting in aspiration. He was not able to clear his airway and strategies such as hard swallow, secondary swallow, liquid wash and supraglottic swallow were not helpful. Recommend continued NPO status as he cannot safely tolerate oral intake. Results and apurva. were shared with patient and his nurse and they verbalized understanding. Dictated report to follow. Thank you for this referral. ROLAND AQUINO MSCCC-INFORMATICA MDM ARCHITECT
--- NOTE | 2019-08-31 14:39 | NUR ---
SPEECH NOTIFIED THIS NURSE THAT PT NEEDS TO REMAIN NPO PER MODIFIED BARIUM SWALLOW. DR RUSSELL NOTIFIED. HE ASKED ABOUT NUTRITIONS RECCOMENDATIONS, NO NOTES AVAILABLE AT THIS TIME. JULIET ROTHMAN CALLED AND NOTIFIED. SHE STATES PT WOULD 4-[address] RUSSELL NOTIFIED.
[2019-08-31 16:00] VITALS: BP 119/53
--- NOTE | 2019-08-31 18:34 | NUR ---
PT TOLERATED PEG FEEDING WITHOUT DIFFICULTY. CALL LIGHT IN REACH. WILL MONITOR
[2019-08-31 20:00] VITALS: BP 123/55
[2019-09-01] VITALS: BP 129/63
[2019-09-01 08:00] VITALS: BP 128/58
--- NOTE | 2019-09-01 08:18 | NUR ---
OT NOTE Pt was seen this A.M. 1:1 for 18 minute OT session. Upon arrival pt was supine in bed. Pt identified by name and and had no complaints at this time. Pt transferred supine to sit EOB with SBA. Sit to stand completed from the bed level with CGA and use of w/w for UE support. Upon inital rise pt had LOB backwards that required Trish to correct. Functional mobility completed into the bathroom with CGA and use of w/w, throughout pt had two LOB that both occured backwards that required Trish to correct. Pt transferred on/off standard commode with CGA for safety. Clothing management completed with CGA and toilet hygiene completed with supervision while seated. Pt then stood sink side while washing his hands with CGA, again pt had LOB backwards that required Trish ot correct. Pt then transferred back into bed sit to supine with SBA. There he was left with call light in hand, tray table in place, and bed alarm activated for safety. Continue with rec D/C plan to SNF. JUSTUS Portillo
--- NOTE | 2019-09-01 08:45 | NUR ---
PHYSICAL THERAPY Patient seen this am 1:1 for therapy visit and was resting supine in bed upon therapist arrival. Patient identified by name / and was very pleasant this morning, voicing no c/o's pain. Patient transfers supine to sit EOB with MOD A, needing a minute or so to collect himself. Patient received education on safe standing posture and use of wh walker to improve standing balance while preventing increased risk of retrograde posture. Patient completed sit to stand MIN A needed v/c to keep weight on his hands while navigating wh walker. Patient ambulated 40'x 2, CGA for straight line gait and MIN A for all turns secondary to unsteady gait pattern. Patient returned to supine in bed with increased fatigue and remained with call light, tray table, telephone and bed alarm for safety. Will continue per POC as tolerated, total treatment time 16 minutes. True Eddy, DEMO COORDINATOR
--- NOTE | 2019-09-01 10:30 | NUR ---
Radiology Administrator in to see patient. No new needs or request at this time. Discussed with and patient awaiting precert for [place]. urban planner following.
[2019-09-01 12:00] VITALS: BP 123/62
--- NOTE | 2019-09-01 14:11 | NUR ---
Complete referral faxed to [facility], patient has been accepted, hospital exemption complete. Precert started, waiting on auth.
[2019-09-01 16:00] VITALS: BP 127/55
[2019-09-01 20:00] VITALS: BP 137/58
[2019-09-02] VITALS: BP 114/57
--- NOTE | 2019-09-02 03:00 | NUR ---
RIGHT CHEST DRESSING CLEAN, DRY, INTACT.
--- NOTE | 2019-09-02 05:52 | NUR ---
PT C/O PAIN RIGHT CHEST D/T PROCEDURE. RATES PAIN A 9/10. WILL MEDICATE PER ORDER.
[2019-09-02 08:00] VITALS: BP 120/60
--- NOTE | 2019-09-02 09:45 | NUR ---
PHYSICAL THERAPY Patient was resting supine in bed this am when approached for therapy and stated he was feeling very tired. Patient requested to be seen this pm for therapy and will continue per POC as able. True Eddy, CLAY PIGEON LOADER
--- NOTE | 2019-09-02 10:25 | NUR ---
PEG PLACEMENT VERIFIED WITH AIR BOLUS. PT TOLERATED FEED WITHOUT DIFFICULTY. CALL LIGHT IN REACH. WILL MONITOR.
--- NOTE | 2019-09-02 11:00 | NUR ---
Plug Wirer in to see patient. No new needs or request at this time. Discussed with and patient awaiting precert for [place]. mechanical planner following.
--- NOTE | 2019-09-02 11:20 | NUR ---
PHYSICAL THERAPY Patient seen this am 1;1 for therapy visit and was supine in bed upon therapist arrival. Patient identified by name / and was very pleasant, voicing no new c/o's at this time. Patient transfers supine to sit EOB, then sit to stand with MIN A, ambulating with use of wh walker, 45'x 2, MIN A, demonstrating decreased stride with cautious gait pattern. Patient is very unsteady during all turns, including several bouts of retrograde posture. Patient received v/c's for "head up" posture and improved walker safety / navigation and returned to supine in bed with increased fatigue / SOB. Patient remained in bed with call light, tray table, telephone and bed alarm. Patient would benefit from SNF to improve standing balance, safe transfers and mobilty to reduce risk of falling. Will continue per POC as tolerated, total treatment time 17 minutes. True Eddy, KILN MECHANIC
--- NOTE | 2019-09-02 11:36 | NUR ---
OT NOTE Pt was seen this A.M. 1:1 for 15 minute OT session. Upon arrival pt was supine in bed. Pt identified by name and and had no complaints at this time. Pt transferred supine to sit EOB with Trish for assist with UB. Requested for pt to vinicio B socks and pt was able to complete with modA due to pain in his hamstrings when forward flexed. Sit to stand completed from bed level with Trish and use of w/w with minor LOB backwards occuring upon inital rise that required Trish to correct. Pt was educated on techniques to correct retrograde posture and pt presented with fair carry over. Challenged pt's static standing tolerance needed for increased I in self care tasks and functional transfers and pt was able to tolerate aprox 2 minutes at a time before sitting due to fatigue. Pt completed functional mobility to the bathroom and back with CGA and use of w/w. One minor LOB occured while turning that required Trish to correct. Functional mobility completed back to the EOB where he transferred sit to supine with SBA. There he was left with call light in hand, tray table in place, and bed alarm activated for safety. Continue with rec D/C plan to SNF. JUSTUS Portillo
[2019-09-02 12:00] VITALS: BP 124/70
[2019-09-02] MEDS ORDERED: CIPROFLOXACIN500 M4 PO ×2 (13:42→13:49)
--- NOTE | 2019-09-02 14:45 | NUR ---
TUBE FEED TOLERATED WITHOUT DIFFICULTY. CALL LIGHT INB RAECH. WILL MONITOR
[2019-09-02 16:00] VITALS: BP 122/58
--- NOTE | 2019-09-02 18:30 | NUR ---
PATIENTS TUBE FEED RESIDUAL AT THIS TIME IS 200CC, AMOUNT REDIRECT BACK. TUBE FEED HELD AT THIS TIME, WILL RECHECK RESIDUAL IN 1 HR AND CONTINUE TUBE FEED IF APPROPIATE.
--- NOTE | 2019-09-02 19:30 | NUR ---
PEG TUBE RESIDUAL OF 80CC, AMOUNT REDIRECTED BACK WITH GRAVITY FLOW. TUBE FEEDING GIVEN AT THIS TIME, PATIENT TOLERATED WELL.
[2019-09-02 20:00] VITALS: BP 104/80
--- NOTE | 2019-09-02 22:30 | NUR ---
TUBE FFED ADMINISTERED AT THIS TIME, PLACEMENT CHECK BY AIR BOLUS. 20CC RESIDUAL. PATIENT TOLERATED TUBE FEED
[2019-09-03] VITALS: BP 115/53
--- NOTE | 2019-09-03 01:41 | NUR ---
24 HR chart check completed.
[2019-09-03 08:00] VITALS: BP 126/60
--- NOTE | 2019-09-03 08:05 | NUR ---
Patient has received auth for [facility] and is ok to go if medically stable for discharge.
--- NOTE | 2019-09-03 08:08 | NUR ---
Notified Dr. Noe of patient receiving auth and can be discharged today to [facility] if medically stable.
--- NOTE | 2019-09-03 08:23 | NUR ---
Patient is discharged, stating she is going to transport patient to [facility]. She will be here at 10AM. Paint Crew Supervisor notified, [facility] notified, dc orders faxed.
--- NOTE | 2019-09-03 11:25 | NUR ---
Discharge instructions reviewed with patient/family. Patient receptive and verbalizes understanding. Follow-up care arranged. Written instructions given to patient/family. SARAH MIRANDA
--- NOTE | 2019-09-04 08:10 | NUR ---
PHYSICAL THERAPY CO-SIGN I approve of the Physical Therapy notes written above. Suzy Cullen, PT, DPT
--- NOTE | 2019-09-04 08:12 | NUR ---
OCCUPATIONAL THERAPY CO-SIGN I approve of the Occupational Therapy notes written above. BRANDIN VALERA OTR/Leon
== END 2019-09-03 11:38 | disposition home or self-care (01) | DRG 391 ==
LOC: 4E 14:29
PROVIDERS: Internal Medicine Nephrology; Student in an Organized Health Care Education/Training Program; ADMIT Internal Medicine
PROC: 0DH63UZ Insertion of Feeding Device into Stomach, Percutaneous Approach (ICD-10-PCS; principal; 2019-08-28)
PROC: BD1BYZZ Fluoroscopy of Mouth/Oropharynx using Other Contrast (ICD-10-PCS; 2019-08-31)
PROC: BD11YZZ Fluoroscopy of Esophagus using Other Contrast (ICD-10-PCS; 2019-08-31)
DX: K29.70 Gastritis, unspecified, without bleeding (principal); E43 Unspecified severe protein-calorie malnutrition; Q21.1 Atrial septal defect; N39.0 Urinary tract infection, site not specified; R62.7 Adult failure to thrive; D53.9 Nutritional anemia, unspecified; Z66 Do not resuscitate; I48.91 Unspecified atrial fibrillation; F32.9 Major depressive disorder, single episode, unspecified; I10 Essential (primary) hypertension; R13.14 Dysphagia, pharyngoesophageal phase; Z51.5 Encounter for palliative care; R00.0 Tachycardia, unspecified; Z86.73 Personal history of transient ischemic attack (TIA), and cerebral infarction without residual deficits; Z80.0 Family history of malignant neoplasm of digestive organs; Z82.49 Family history of ischemic heart disease and other diseases of the circulatory system; Z88.4 Allergy status to anesthetic agent; Z68.20 Body mass index [BMI] 20.0-20.9, adult